=== PATIENT | female | born 1990 | race African-American/Black ===

== ENCOUNTER 2017-05-22 13:05 | Emergency (ER) | payer OTHER, MEDICAID ==
[~2017-05-22] VITALS: Ht 154.9 cm; Wt 72.5 kg
[~2017-05-22 13:05] MED LIST: BIRTH CONTROL PO
[2017-05-22] MEDS ORDERED: IBUPROFEN 800 MG TABLET PO ONE (14:45)
[2017-05-22 16:50] VITALS: BP 136/72
== END 2017-05-22 16:54 | disposition home or self-care (01) ==
LOC: EMS 13:06
DX: S93.401A Sprain of unspecified ligament of right ankle, initial encounter (principal); W10.8XXA Fall (on) (from) other stairs and steps, initial encounter; Y93.89 Activity, other specified; Y92.811 Bus as the place of occurrence of the external cause; Y99.8 Other external cause status
CPT/HCPCS: 99284

== ENCOUNTER 2017-10-09 09:14 | Emergency (ER) | payer OTHER, MEDICAID ==
[~2017-10-09] VITALS: Ht 154.9 cm; Wt 77.3 kg
[2017-10-09] MEDS ORDERED: SODIUM CHLORIDE 0.9% 1,000 ML IV ONE (10:15)
[2017-10-09 11:24] LABS: BASOPHILS % (AUTO) 0.2 % (0.0-2.0); HEMATOCRIT 37.1 % (36-46); HEMOGLOBIN 12.7 g/dL (12.0-16.0); LYMPHOCYTES # (AUTO) 2.5 K/uL (1.0-4.8); LYMPHOCYTES % (AUTO) 25.9 % (22.0-44.0); MEAN CORPUSCULAR HEMOGLOBIN 29.7 pg (26.0-34.0); MEAN CORPUSCULAR HGB CONC 34.3 G/dL (31.0-37.0); MEAN CORPUSCULAR VOLUME 87 fL (80-100); MONOCYTES # (AUTO) 0.8 K/uL (0.1-1.0); MONOCYTES % (AUTO) 8.5 % (2.0-9.0); NEUTROPHILS # (AUTO) 6.2 K/uL (1.8-7.7); NEUTROPHILS % (AUTO) 63.4 % (40.0-70.0); PLATELET COUNT (AUTO) 196 K/uL (150-450); RED BLOOD CELL COUNT(AUTO) 4.28 MIL/uL (4.00-5.20); RED CELL DISTRIBUTION WIDTH 13.4 % (11.5-14.5); WHITE BLOOD COUNT (AUTO) 9.8 K/uL (4.5-11.0)
[2017-10-09 11:31] LABS: ANION GAP 8 mmol/L (8-16); CALCIUM, TOTAL 8.5 mg/dL (8.8-10.5); CARBON DIOXIDE 28 mmol/L (22-29); CHLORIDE 102 mmol/L (98-107); CREATININE 0.59 mg/dL (0.60-1.30); GLOMERULAR FILTR. RATE CALC > 60 mL/min (>60); POTASSIUM 3.7 mmol/L (3.5-5.1); SODIUM SERUM 138 mmol/L (136-145); UREA NITROGEN, BLOOD 17 mg/dL (7-18)
[2017-10-09 11:37] LABS: ALANINE AMINOTRANSFERASE 24 U/L (12-78); ALBUMIN 3.8 g/dL (3.4-5.0); ASPARTATE AMINOTRANSFERASE 11 U/L (15-37); BILIRUBIN,TOTAL 0.8 mg/dL (0.1-1.0)
[2017-10-09 12:28] LABS: GLUCOSE, URINE (UA) NEGATIVE (NEGATIVE); KETONES,URINE 15 mg/dL (NEGATIVE); LEUKOCYTE ESTERASE ,URINE NEGATIVE (NEGATIVE); OCCULT BLOOD,URINE NEGATIVE (NEGATIVE); PH,URINE 5.5 (5.0-8.0); PROTEIN,URINE NEGATIVE (NEGATIVE)
[2017-10-09 12:42] LABS: ADD UA MICROSCOPIC NO; APPEARANCE,URINE HAZY (CLEAR)
[2017-10-09 13:40] VITALS: BP 133/90
== END 2017-10-09 13:44 | disposition home or self-care (01) ==
LOC: EMS 09:18
DX: R19.7 Diarrhea, unspecified (principal); R11.0 Nausea
CPT/HCPCS: 36415; 80053; 81003; 84703; 85025; 99284; J7030

== ENCOUNTER 2018-03-11 08:46 | Emergency (ER) | payer OTHER, MEDICAID ==
[~2018-03-11] VITALS: Ht 154.9 cm; Wt 86.4 kg
[2018-03-11 10:09] LABS: APPEARANCE,URINE TURBID (CLEAR); BILIRUBIN,URINE NEGATIVE (NEGATIVE); GLUCOSE, URINE (UA) NEGATIVE (NEGATIVE); KETONES,URINE NEGATIVE (NEGATIVE); LEUKOCYTE ESTERASE ,URINE SMALL (NEGATIVE); NITRATE,URINE NEGATIVE (NEGATIVE); OCCULT BLOOD,URINE LARGE (NEGATIVE); PROTEIN,URINE SEE CONFIRM (NEGATIVE)
[2018-03-11 10:53] LABS: SULFOSALICYLIC ACID,URINE 4+ (Negative)
[2018-03-11 10:54] LABS: RBC,URINE >100 /HPF (0-2)
[2018-03-11 10:55] LABS: BACTERIA,URINE Many /HPF (None Seen)
[2018-03-11 10:56] LABS: SQUAMOUS EPITHELIAL CELL,UR Moderate /LPF (None Seen)
[2018-03-11 11:23] VITALS: BP 140/83
== END 2018-03-11 11:28 | disposition home or self-care (01) ==
LOC: EMS 08:46
DX: N39.0 Urinary tract infection, site not specified (principal)
CPT/HCPCS: 87086; 99284

== ENCOUNTER 2018-06-10 12:40 | Emergency (ER) | payer OTHER, MEDICAID ==
[~2018-06-10] VITALS: Ht 152.4 cm; Wt 95.9 kg
[2018-06-10 13:59] LABS: BASOPHILS % (AUTO) 1.2 % (0.0-2.0); EOSINOPHILS % (AUTO) 2.1 % (1.0-6.0); HEMATOCRIT 36.1 % (36-46); HEMOGLOBIN 12.3 g/dL (12.0-16.0); LYMPHOCYTES # (AUTO) 2.6 K/uL (1.0-4.8); LYMPHOCYTES % (AUTO) 26.5 % (22.0-44.0); MEAN CORPUSCULAR HEMOGLOBIN 29.3 pg (26.0-34.0); MEAN CORPUSCULAR HGB CONC 33.9 G/dL (31.0-37.0); MEAN CORPUSCULAR VOLUME 87 fL (80-100); MONOCYTES # (AUTO) 0.8 K/uL (0.1-1.0); NEUTROPHILS # (AUTO) 6.1 K/uL (1.8-7.7); NEUTROPHILS % (AUTO) 62.2 % (40.0-70.0); PLATELET COUNT (AUTO) 197 K/uL (150-450); RED BLOOD CELL COUNT(AUTO) 4.18 MIL/uL (4.00-5.20); RED CELL DISTRIBUTION WIDTH 13.4 % (11.5-14.5)
[2018-06-10 14:03] LABS: ANION GAP 7 mmol/L (8-16); CALCIUM, TOTAL 7.9 mg/dL (8.8-10.5); CARBON DIOXIDE 26 mmol/L (22-29); CHLORIDE 102 mmol/L (98-107); GLOMERULAR FILTR. RATE CALC > 60 mL/min (>60); GLUCOSE,RANDOM 99 mg/dL (70-110); POTASSIUM 3.8 mmol/L (3.5-5.1); SODIUM SERUM 135 mmol/L (136-145); UREA NITROGEN, BLOOD 19 mg/dL (7-18)
[2018-06-10 14:09] LABS: ALANINE AMINOTRANSFERASE 27 U/L (12-78); ALBUMIN 3.5 g/dL (3.4-5.0); ALKALINE PHOSPHATASE 62 U/L (46-116); ASPARTATE AMINOTRANSFERASE 17 U/L (15-37); BILIRUBIN,TOTAL 0.2 mg/dL (0.1-1.0)
[2018-06-10 14:34] VITALS: BP 125/72
== END 2018-06-10 15:34 | disposition home or self-care (01) ==
LOC: EMS 12:43
DX: R09.1 Pleurisy (principal); R07.89 Other chest pain
CPT/HCPCS: 93005; 99285

== ENCOUNTER 2018-11-16 16:46 | Emergency (ER) | payer OTHER, MEDICAID ==
[~2018-11-16] VITALS: Ht 154.9 cm; Wt 90.9 kg
[2018-11-16] MEDS ORDERED: KETOROLAC TROMETHAMINE 30 MG/ML VIAL IM ONE (19:45)
[2018-11-16] MEDS ORDERED: DEXAMETHASONE SOD PHOS 4 MG/ML 5 ML VIAL IM ONE (19:45)
[2018-11-16 20:42] VITALS: BP 132/84
== END 2018-11-16 21:12 | disposition home or self-care (01) ==
LOC: EMS 16:47
DX: J02.0 Streptococcal pharyngitis (principal)
CPT/HCPCS: 87430; 96372; 99283; J1100; J1885

== ENCOUNTER 2019-06-03 14:23 | Emergency (ER) | payer MEDICARE, MEDICAID ==
[~2019-06-03] VITALS: Ht 154.9 cm; Wt 88.2 kg
[2019-06-03 14:44] VITALS: BP 128/74
== END 2019-06-03 15:48 | disposition home or self-care (01) ==
LOC: EMS 14:25
DX: K64.4 Residual hemorrhoidal skin tags (principal)

== ENCOUNTER 2019-06-09 15:13 | Emergency (ER) | payer MEDICARE, MEDICAID ==
[~2019-06-09] VITALS: Ht 154.9 cm; Wt 88.2 kg
[2019-06-09] MEDS ORDERED: IBUPROFEN 600 MG TABLET PO ONE (17:45)
[2019-06-09 17:53] LABS: BASOPHILS % (AUTO) 0.4 % (0.0-2.0); EOSINOPHILS % (AUTO) 1.5 % (1.0-6.0); HEMATOCRIT 38.8 % (36-46); HEMOGLOBIN 12.5 g/dL (12.0-16.0); LYMPHOCYTES # (AUTO) 2.4 K/uL (1.0-4.8); LYMPHOCYTES % (AUTO) 19.6 % (22.0-44.0); MEAN CORPUSCULAR HEMOGLOBIN 28.4 pg (26.0-34.0); MEAN CORPUSCULAR HGB CONC 32.1 G/dL (31.0-37.0); MEAN CORPUSCULAR VOLUME 89 fL (80-100); MONOCYTES # (AUTO) 0.9 K/uL (0.1-1.0); MONOCYTES % (AUTO) 7.6 % (2.0-9.0); NEUTROPHILS # (AUTO) 8.8 K/uL (1.8-7.7); NEUTROPHILS % (AUTO) 70.9 % (40.0-70.0); PLATELET COUNT (AUTO) 186 K/uL (150-450); RED BLOOD CELL COUNT(AUTO) 4.38 MIL/uL (4.00-5.20); RED CELL DISTRIBUTION WIDTH 13.4 % (11.5-14.5)
[2019-06-09 18:04] LABS: ANION GAP 10 mmol/L (8-16); CALCIUM, TOTAL 8.9 mg/dL (8.8-10.5); CARBON DIOXIDE 26 mmol/L (22-29); CHLORIDE 101 mmol/L (98-107); CREATININE 0.63 mg/dL (0.60-1.30); GLOMERULAR FILTR. RATE CALC > 60 mL/min (>60); GLUCOSE,RANDOM 79 mg/dL (70-110); POTASSIUM 3.8 mmol/L (3.5-5.1); SODIUM SERUM 137 mmol/L (136-145); UREA NITROGEN, BLOOD 15 mg/dL (7-18)
[2019-06-09 18:12] LABS: APPEARANCE,URINE TURBID (CLEAR); BILIRUBIN,URINE NEGATIVE (NEGATIVE); GLUCOSE, URINE (UA) NEGATIVE (NEGATIVE); KETONES,URINE 40 mg/dL (NEGATIVE); LEUKOCYTE ESTERASE ,URINE NEGATIVE (NEGATIVE); NITRATE,URINE NEGATIVE (NEGATIVE); OCCULT BLOOD,URINE NEGATIVE (NEGATIVE); PH,URINE 5.5 (5.0-8.0); PROTEIN,URINE TRACE (NEGATIVE); UROBILINOGEN,URINE 0.2 mg/dL (<=1.0)
[2019-06-09 18:17] LABS: ALANINE AMINOTRANSFERASE 29 U/L (12-78); ALBUMIN 3.4 g/dL (3.4-5.0); ALKALINE PHOSPHATASE 55 U/L (46-116); ASPARTATE AMINOTRANSFERASE 12 U/L (15-37); BILIRUBIN,TOTAL 0.5 mg/dL (0.1-1.0); HCG,QUANTITATIVE < 1 mIU/mL (0-6); LIPASE 88 U/L (73-393); TOTAL PROTEIN, SERUM 7.1 g/dL (6.4-8.2)
[2019-06-09 18:46] VITALS: BP 111/73
== END 2019-06-09 18:53 | disposition home or self-care (01) ==
LOC: EMS 15:14
DX: R10.32 Left lower quadrant pain (principal)

== ENCOUNTER 2019-11-01 10:28 | Emergency (ER) | payer MEDICARE, MEDICAID ==
[~2019-11-01] VITALS: Ht 157.5 cm; Wt 77.3 kg
[2019-11-01 11:31] LABS: BASOPHILS % (AUTO) 1.1 % (0.0-2.0); EOSINOPHILS % (AUTO) 2.9 % (1.0-6.0); HEMATOCRIT 39.5 % (36-46); LYMPHOCYTES # (AUTO) 2.3 K/uL (1.0-4.8); MEAN CORPUSCULAR HEMOGLOBIN 28.7 pg (26.0-34.0); MEAN CORPUSCULAR HGB CONC 32.8 G/dL (31.0-37.0); MEAN CORPUSCULAR VOLUME 87 fL (80-100); MONOCYTES # (AUTO) 0.5 K/uL (0.1-1.0); MONOCYTES % (AUTO) 6.9 % (2.0-9.0); NEUTROPHILS # (AUTO) 3.9 K/uL (1.8-7.7); NEUTROPHILS % (AUTO) 56.1 % (40.0-70.0); PLATELET COUNT (AUTO) 226 K/uL (150-450); RED BLOOD CELL COUNT(AUTO) 4.52 MIL/uL (4.00-5.20); RED CELL DISTRIBUTION WIDTH 13.5 % (11.5-14.5)
[2019-11-01 11:34] LABS: APPEARANCE,URINE HAZY (CLEAR); BILIRUBIN,URINE NEGATIVE (NEGATIVE); GLUCOSE, URINE (UA) NEGATIVE (NEGATIVE); KETONES,URINE 15 mg/dL (NEGATIVE); LEUKOCYTE ESTERASE ,URINE NEGATIVE (NEGATIVE); NITRATE,URINE NEGATIVE (NEGATIVE); OCCULT BLOOD,URINE NEGATIVE (NEGATIVE); PROTEIN,URINE NEGATIVE (NEGATIVE); UROBILINOGEN,URINE 0.2 mg/dL (<=1.0)
[2019-11-01 11:58] LABS: ANION GAP 5 mmol/L (8-16); CALCIUM, TOTAL 8.5 mg/dL (8.8-10.5); CARBON DIOXIDE 29 mmol/L (22-29); CHLORIDE 101 mmol/L (98-107); CREATININE 0.72 mg/dL (0.60-1.30); GLOMERULAR FILTR. RATE CALC > 60 mL/min (>60); GLUCOSE,RANDOM 82 mg/dL (70-110); SODIUM SERUM 135 mmol/L (136-145); UREA NITROGEN, BLOOD 13 mg/dL (7-18)
[2019-11-01 12:04] LABS: ALANINE AMINOTRANSFERASE 25 U/L (12-78); ALBUMIN 3.9 g/dL (3.4-5.0); ALKALINE PHOSPHATASE 54 U/L (46-116); ASPARTATE AMINOTRANSFERASE 12 U/L (15-37); BILIRUBIN,TOTAL 0.5 mg/dL (0.1-1.0); HCG,QUANTITATIVE < 1 mIU/mL (0-6); LIPASE 55 U/L (73-393); TOTAL PROTEIN, SERUM 7.5 g/dL (6.4-8.2)
[2019-11-01] MEDS: ACETAMINOPHEN 325 MG TABLET PO ONE ×2 (12:09→12:17)
[2019-11-01 15:05] VITALS: BP 122/74
== END 2019-11-01 15:05 | disposition home or self-care (01) ==
LOC: EMS 10:30
DX: R10.2 Pelvic and perineal pain (principal)
CPT/HCPCS: 76856

== ENCOUNTER 2020-10-22 10:02 | Emergency (ER) | payer MEDICARE, MEDICAID ==
[~2020-10-22] VITALS: Ht 154.9 cm; Wt 90.0 kg
[2020-10-22 11:40] VITALS: BP 108/79
== END 2020-10-22 11:56 | disposition home or self-care (01) ==
LOC: EMS 10:07
DX: H00.021 Hordeolum internum right upper eyelid (principal)
CPT/HCPCS: 99283; Z7502

== ENCOUNTER 2021-01-08 06:08 | Emergency (ER) | payer MEDICARE, MEDICAID ==
[~2021-01-08] VITALS: Ht 162.6 cm; Wt 93.2 kg
[2021-01-08 06:59] LABS: BILIRUBIN,URINE NEGATIVE (NEGATIVE); GLUCOSE, URINE (UA) 100 mg/dL (NEGATIVE); KETONES,URINE NEGATIVE (NEGATIVE); LEUKOCYTE ESTERASE ,URINE NEGATIVE (NEGATIVE); NITRATE,URINE NEGATIVE (NEGATIVE); OCCULT BLOOD,URINE NEGATIVE (NEGATIVE); PROTEIN,URINE NEGATIVE (NEGATIVE); UROBILINOGEN,URINE 0.2 mg/dL (<=1.0)
[2021-01-08 07:50] LABS: APPEARANCE,URINE HAZY (CLEAR)
[2021-01-08 07:51] LABS: BACTERIA,URINE None Seen /HPF (None Seen); RBC,URINE None Seen /HPF (0-2); SQUAMOUS EPITHELIAL CELL,UR Many /LPF (None Seen); WBC,URINE None Seen /HPF (0-5)
[2021-01-08 07:52] LABS: BASOPHILS % (AUTO) 0.4 % (0.0-2.0); EOSINOPHILS % (AUTO) 2.2 % (1.0-6.0); HEMATOCRIT 35.8 % (36-46); HEMOGLOBIN 11.8 g/dL (12.0-16.0); LYMPHOCYTES # (AUTO) 1.4 K/uL (1.0-4.8); LYMPHOCYTES % (AUTO) 13.4 % (22.0-44.0); MEAN CORPUSCULAR HEMOGLOBIN 28.7 pg (26.0-34.0); MEAN CORPUSCULAR VOLUME 87 fL (80-100); MONOCYTES # (AUTO) 0.8 K/uL (0.1-1.0); MONOCYTES % (AUTO) 7.4 % (2.0-9.0); NEUTROPHILS # (AUTO) 8.2 K/uL (1.8-7.7); NEUTROPHILS % (AUTO) 76.6 % (40.0-70.0); PLATELET COUNT (AUTO) 185 K/uL (150-450); RED BLOOD CELL COUNT(AUTO) 4.11 MIL/uL (4.00-5.20); RED CELL DISTRIBUTION WIDTH 13.4 % (11.5-14.5)
[2021-01-08 08:03] LABS: ANION GAP 10 mmol/L (8-16); CARBON DIOXIDE 26 mmol/L (22-29); CHLORIDE 101 mmol/L (98-107); CREATININE 0.48 mg/dL (0.60-1.30); GLOMERULAR FILTR. RATE CALC > 60 mL/min (>60); GLUCOSE,RANDOM 74 mg/dL (70-110); SODIUM SERUM 137 mmol/L (136-145); UREA NITROGEN, BLOOD 15 mg/dL (7-18)
[2021-01-08 08:25] LABS: ALANINE AMINOTRANSFERASE 26 U/L (12-78); ALKALINE PHOSPHATASE 46 U/L (46-116); ASPARTATE AMINOTRANSFERASE 15 U/L (15-37); BILIRUBIN,TOTAL 0.3 mg/dL (0.1-1.0); HCG,QUANTITATIVE 12658 mIU/mL (0-6); LIPASE 72 U/L (73-393); TOTAL PROTEIN, SERUM 6.7 g/dL (6.4-8.2)
[2021-01-08 11:00] VITALS: BP 126/60
== END 2021-01-08 11:15 | disposition home or self-care (01) ==
LOC: EMS 06:11
DX: O26.892 Other specified pregnancy related conditions, second trimester (principal); F43.9 Reaction to severe stress, unspecified; R10.30 Lower abdominal pain, unspecified; Z3A.17 17 weeks gestation of pregnancy
CPT/HCPCS: 76801; 99284

== ENCOUNTER 2021-05-13 17:10 | Observation (INO) | payer MEDICARE, MEDICAID ==
[~2021-05-13] VITALS: Ht 154.9 cm; Wt 96.6 kg
[2021-05-13] MEDS ORDERED: PREN-217 PO (18:22)
[2021-05-13 18:30] VITALS: BP 99/52
[2021-05-13 18:49] LABS: APPEARANCE,URINE CLEAR (CLEAR); BILIRUBIN,URINE NEGATIVE (NEGATIVE); GLUCOSE, URINE (UA) NEGATIVE (NEGATIVE); KETONES,URINE 15 mg/dL (NEGATIVE); LEUKOCYTE ESTERASE ,URINE NEGATIVE (NEGATIVE); NITRATE,URINE NEGATIVE (NEGATIVE); OCCULT BLOOD,URINE NEGATIVE (NEGATIVE); PROTEIN,URINE NEGATIVE (NEGATIVE)
== END 2021-05-13 18:24 | disposition home or self-care (01) ==
LOC: 4S 17:10
PROVIDERS: ADMIT Obstetrics & Gynecology Obstetrics; ATTEND Obstetrics & Gynecology Obstetrics
DX: Z04.3 Encounter for examination and observation following other accident (principal); O24.419 Gestational diabetes mellitus in pregnancy, unspecified control; O99.213 Obesity complicating pregnancy, third trimester; Z79.899 Other long term (current) drug therapy; Z3A.38 38 weeks gestation of pregnancy; W18.39XA Other fall on same level, initial encounter; Y93.89 Activity, other specified; Y92.89 Other specified places as the place of occurrence of the external cause; Y99.8 Other external cause status
CPT/HCPCS: 59025; 80307; 81003; 99219

== ENCOUNTER 2021-12-06 16:27 | Emergency (ER) | payer MEDICARE, MEDICAID ==
[~2021-12-06] VITALS: Ht 154.9 cm; Wt 81.8 kg
[~2021-12-06 16:27] MED LIST changes: -BIRTH CONTROL PO; +PREN-217 PO
[2021-12-06 17:13] LABS: COVID AG,FIA SOURCE NASOPHARYNGEAL
[2021-12-06 17:45] LABS: BASOPHILS % (AUTO) 0.3 % (0.0-2.0); EOSINOPHILS % (AUTO) 1.8 % (1.0-6.0); HEMATOCRIT 42.9 % (36-46); HEMOGLOBIN 14.5 g/dL (12.0-16.0); LYMPHOCYTES # (AUTO) 0.7 K/uL (1.0-4.8); LYMPHOCYTES % (AUTO) 9.1 % (22.0-44.0); MEAN CORPUSCULAR HEMOGLOBIN 28.8 pg (26.0-34.0); MEAN CORPUSCULAR HGB CONC 33.7 G/dL (31.0-37.0); MEAN CORPUSCULAR VOLUME 86 fL (80-100); MONOCYTES # (AUTO) 0.7 K/uL (0.1-1.0); MONOCYTES % (AUTO) 9.3 % (2.0-9.0); NEUTROPHILS # (AUTO) 5.8 K/uL (1.8-7.7); NEUTROPHILS % (AUTO) 79.5 % (40.0-70.0); PLATELET COUNT (AUTO) 166 K/uL (150-450); RED BLOOD CELL COUNT(AUTO) 5.02 MIL/uL (4.00-5.20); RED CELL DISTRIBUTION WIDTH 13.8 % (11.5-14.5)
[2021-12-06 18:09] LABS: ANION GAP 8 mmol/L (8-16); CARBON DIOXIDE 26 mmol/L (22-29); CHLORIDE 100 mmol/L (98-107); CREATININE 0.67 mg/dL (0.60-1.30); GLOMERULAR FILTR. RATE CALC > 60 mL/min (>60); GLUCOSE,RANDOM 104 mg/dL (70-110); POTASSIUM 3.9 mmol/L (3.5-5.1); SODIUM SERUM 134 mmol/L (136-145); UREA NITROGEN, BLOOD 9 mg/dL (7-18)
[2021-12-06 18:22] LABS: HCG,QUANTITATIVE < 1 mIU/mL (0-6)
[2021-12-06] MEDS ORDERED: ACETAMINOPHEN 500 MG TABLET PO ONE (18:45)
[2021-12-06 18:59] VITALS: BP 113/84
== END 2021-12-06 18:59 | disposition home or self-care (01) ==
LOC: EMS 16:37
DX: U07.1 COVID-19 (principal); Z79.899 Other long term (current) drug therapy
CPT/HCPCS: 36415; 80048; 84702; 85025; 85379; 87426; 99283; U0003

== ENCOUNTER 2022-01-09 12:06 | Emergency (ER) | payer MEDICAID, MEDICARE ==
[~2022-01-09] VITALS: Ht 154.9 cm; Wt 83.6 kg
[2022-01-09 15:44] LABS: BASOPHILS % (AUTO) 0.8 % (0.0-2.0); EOSINOPHILS % (AUTO) 3.2 % (1.0-6.0); HEMATOCRIT 35.5 % (36-46); HEMOGLOBIN 11.8 g/dL (12.0-16.0); LYMPHOCYTES # (AUTO) 2.4 K/uL (1.0-4.8); LYMPHOCYTES % (AUTO) 24.7 % (22.0-44.0); MEAN CORPUSCULAR HEMOGLOBIN 28.4 pg (26.0-34.0); MEAN CORPUSCULAR HGB CONC 33.3 G/dL (31.0-37.0); MEAN CORPUSCULAR VOLUME 85 fL (80-100); MONOCYTES # (AUTO) 0.9 K/uL (0.1-1.0); MONOCYTES % (AUTO) 8.8 % (2.0-9.0); NEUTROPHILS # (AUTO) 6.1 K/uL (1.8-7.7); NEUTROPHILS % (AUTO) 62.5 % (40.0-70.0); PLATELET COUNT (AUTO) 245 K/uL (150-450); RED BLOOD CELL COUNT(AUTO) 4.16 MIL/uL (4.00-5.20); RED CELL DISTRIBUTION WIDTH 13.8 % (11.5-14.5)
[2022-01-09 15:59] LABS: ANION GAP 6 mmol/L (8-16); CALCIUM, TOTAL 8.9 mg/dL (8.8-10.5); CARBON DIOXIDE 28 mmol/L (22-29); CHLORIDE 103 mmol/L (98-107); CREATININE 0.55 mg/dL (0.60-1.30); GLUCOSE,RANDOM 79 mg/dL (70-110); POTASSIUM 3.7 mmol/L (3.5-5.1); SODIUM SERUM 137 mmol/L (136-145); UREA NITROGEN, BLOOD 17 mg/dL (7-18)
[2022-01-09 16:00] LABS: GLOMERULAR FILTR. RATE CALC > 60 mL/min (>60)
[2022-01-09 16:13] LABS: ALANINE AMINOTRANSFERASE 19 U/L (12-78); ALBUMIN 3.3 g/dL (3.4-5.0); ALKALINE PHOSPHATASE 75 U/L (46-116); ASPARTATE AMINOTRANSFERASE 10 U/L (15-37); BILIRUBIN,TOTAL 0.2 mg/dL (0.1-1.0); HCG,QUANTITATIVE < 1 mIU/mL (0-6); LIPASE 59 U/L (73-393); TOTAL PROTEIN, SERUM 7.5 g/dL (6.4-8.2)
[2022-01-09] MEDS ORDERED: SODIUM CHLORIDE 0.9% 100 ML ONE (16:45)
[2022-01-09] MEDS ORDERED: IOHEXOL 350 MG/ML 100 ML VIAL ONE (16:45)
[2022-01-09 19:39] VITALS: BP 126/75
== END 2022-01-09 19:41 | disposition home or self-care (01) ==
LOC: EMS 12:15
DX: R10.9 Unspecified abdominal pain (principal); Z79.899 Other long term (current) drug therapy
CPT/HCPCS: 74177; 80053; 83690; 84702; 85025; 99285; J7050; Q9967

== ENCOUNTER 2022-01-10 09:08 | Inpatient (IN) | payer MEDICAID ==
[~2022-01-10] VITALS: Ht 160 cm; Wt 80.1 kg
[2022-01-10] MEDS ORDERED: SODIUM CHLORIDE 0.9% 1,000 ML IV ONE ×2 (10:00→16:15)
[2022-01-10] MEDS ORDERED: ONDANSETRON HCL 4 MG/2 ML VIAL IVP ONE ×2 (10:00→12:00)
[2022-01-10] MEDS ORDERED: BARIUM SULFATE 0.1% SUSPENSION 450 ML BOTTLE PO ONE (10:00)
[2022-01-10 10:05] LABS: BASOPHILS % (AUTO) 0.6 % (0.0-2.0); EOSINOPHILS % (AUTO) 1.8 % (1.0-6.0); HEMATOCRIT 35.1 % (36-46); HEMOGLOBIN 11.7 g/dL (12.0-16.0); LYMPHOCYTES # (AUTO) 2.2 K/uL (1.0-4.8); LYMPHOCYTES % (AUTO) 23.3 % (22.0-44.0); MEAN CORPUSCULAR HEMOGLOBIN 28.3 pg (26.0-34.0); MEAN CORPUSCULAR HGB CONC 33.4 G/dL (31.0-37.0); MEAN CORPUSCULAR VOLUME 85 fL (80-100); MONOCYTES # (AUTO) 0.6 K/uL (0.1-1.0); NEUTROPHILS # (AUTO) 6.2 K/uL (1.8-7.7); NEUTROPHILS % (AUTO) 67.3 % (40.0-70.0); PLATELET COUNT (AUTO) 257 K/uL (150-450); RED BLOOD CELL COUNT(AUTO) 4.15 MIL/uL (4.00-5.20); RED CELL DISTRIBUTION WIDTH 13.8 % (11.5-14.5)
[2022-01-10] MEDS ORDERED: SODIUM CHLORIDE 0.9% 100 ML ONE (10:09)
[2022-01-10] MEDS ORDERED: IOHEXOL 350 MG/ML 100 ML VIAL ONE (10:09)
[2022-01-10 10:24] LABS: ANION GAP 9 mmol/L (8-16); CALCIUM, TOTAL 8.7 mg/dL (8.8-10.5); CARBON DIOXIDE 27 mmol/L (22-29); CHLORIDE 101 mmol/L (98-107); CREATININE 0.49 mg/dL (0.60-1.30); GLUCOSE,RANDOM 85 mg/dL (70-110); POTASSIUM 3.8 mmol/L (3.5-5.1); SODIUM SERUM 137 mmol/L (136-145); UREA NITROGEN, BLOOD 16 mg/dL (7-18)
[2022-01-10 10:26] LABS: GLOMERULAR FILTR. RATE CALC > 60 mL/min (>60)
[2022-01-10 10:30] LABS: ALANINE AMINOTRANSFERASE 20 U/L (12-78); ALBUMIN 3.3 g/dL (3.4-5.0); ALKALINE PHOSPHATASE 69 U/L (46-116); ASPARTATE AMINOTRANSFERASE 10 U/L (15-37); BILIRUBIN,TOTAL 0.2 mg/dL (0.1-1.0); LIPASE 37 U/L (73-393); TOTAL PROTEIN, SERUM 7.7 g/dL (6.4-8.2)
[2022-01-10] MEDS ORDERED: FentaNYL CITRATE PF 100 MCG/2 ML VIAL IVP ONE (12:00)
[2022-01-10] MEDS ORDERED: LIDOCAINE/PF 2% 5 ML VIAL IM ONE (12:00)
[2022-01-10] MEDS ORDERED: MIDAZOLAM HCL 2 MG/2 ML VIAL IVP ONE (12:00)
[2022-01-10] MEDS ORDERED: SUCCINYLCHOLINE CHLORIDE 20 MG/ML 10 ML VIAL IVP ONE (12:00)
[2022-01-10] MEDS ORDERED: DEXAMETHASONE SOD PHOS 4 MG/ML VIAL IVP ONE (12:00)
[2022-01-10] MEDS ORDERED: PROPOFOL 1% 20 ML VIAL IVP ONE (12:00)
[2022-01-10] MEDS ORDERED: HYDROmorphone 2 MG/ML VIAL IVP ONE (12:00)
[2022-01-10] MEDS ORDERED: KETOROLAC TROMETHAMINE 60 MG/2 ML VIAL IM ONE (12:00)
[2022-01-10 15:02] LABS: COVID AG,FIA SOURCE NASAL SWAB
[2022-01-10] MEDS ORDERED: SODIUM CHLORIDE 0.9% 1,000 ML ONE ×2 (15:06→15:42)
[2022-01-10] MEDS ORDERED: BUPIVACAINE 0.25%/EPI 1:200,000/PF 10 ML VIAL ONE (15:06)
[2022-01-10] MEDS ORDERED: FentaNYL CITRATE PF 100 MCG/2 ML VIAL IVP PRN (15:45)
[2022-01-10] MEDS ORDERED: MEPERIDINE-PF 25 MG/ML VIAL IVP PRN (15:45)
[2022-01-10] MEDS ORDERED: HYDROmorphone 2 MG/ML VIAL IVP PRN (15:45)
[2022-01-10] MEDS ORDERED: MORPHINE SULFATE 2 MG/ML SYRINGE IVP PRN (16:15)
[2022-01-10] MEDS ORDERED: BISACODYL 10 MG RECTAL RECTAL SUPPOSITORY PR PRN (16:15)
[2022-01-10 18:23] VITALS: BP 113/67
[2022-01-10 19:30] VITALS: BP 107/83
[2022-01-10] MEDS ORDERED: NALOXONE HCL 1 MG/ML SYRINGE ONE (19:59)
[2022-01-10 20:01] LABS: GLUCOMETER DEV NAME(LOC) 6N.2; GLUCOSE,POINT OF CARE 343 MG/DL (70-110)
[2022-01-10 20:19] LABS: ABG BASE EXCESS -7.6 mmol/L (-2.0-3.0); ABG CARBOXYHEMOGLOBIN 0.2 % (0.0-1.5); ABG HCO3 18.2 mmol/L (22.0-26.0); ABG METHEMOGLOBIN 0.3 % (0.0-1.5); ABG OXYGEN CONTENT 16.7 mL/dL (15.0-23.0); ABG OXYGEN SATURATION 97.5 % (95.0-98.0); ABG PCO2 55 mmHg (35-45); ABG PH 7.194 (7.350-7.450); ABG TOTAL HEMOGLOBIN 12.1 G/dL (12.0-18.0); PO2, ARTERIAL BG 110.5 mmHg (92.0-100.0); SOURCE, BLOOD GAS ARTERIAL; TEMPERATURE, FAHRENHEIT, BG 98.6 FAHREN (96.0-98.6)
[2022-01-10 20:20] LABS: O2 DEVICE,BLOOD GAS NON REBREATHER (ROOM AIR); SITE, BLOOD GAS RT RADIAL
[2022-01-10 20:33] LABS: ANION GAP 10 mmol/L (8-16); CALCIUM, TOTAL 7.9 mg/dL (8.8-10.5); CARBON DIOXIDE 25 mmol/L (22-29); CHLORIDE 101 mmol/L (98-107); CREATININE 0.78 mg/dL (0.60-1.30); GLOMERULAR FILTR. RATE CALC > 60 mL/min (>60); GLUCOSE,RANDOM 346 mg/dL (70-110); POTASSIUM 3.2 mmol/L (3.5-5.1); SODIUM SERUM 136 mmol/L (136-145); UREA NITROGEN, BLOOD 12 mg/dL (7-18)
[2022-01-10 20:38] LABS: ALANINE AMINOTRANSFERASE 20 U/L (12-78); ALKALINE PHOSPHATASE 70 U/L (46-116); ASPARTATE AMINOTRANSFERASE 13 U/L (15-37); BASOPHILS % (AUTO) 0.3 % (0.0-2.0); BILIRUBIN,TOTAL 0.2 mg/dL (0.1-1.0); EOSINOPHILS % (AUTO) 0.6 % (1.0-6.0); HEMATOCRIT 35.4 % (36-46); HEMOGLOBIN 11.2 g/dL (12.0-16.0); LYMPHOCYTES # (AUTO) 4.9 K/uL (1.0-4.8); LYMPHOCYTES % (AUTO) 22.1 % (22.0-44.0); MEAN CORPUSCULAR HEMOGLOBIN 27.7 pg (26.0-34.0); MEAN CORPUSCULAR HGB CONC 31.6 G/dL (31.0-37.0); MEAN CORPUSCULAR VOLUME 88 fL (80-100); MONOCYTES # (AUTO) 0.3 K/uL (0.1-1.0); MONOCYTES % (AUTO) 1.3 % (2.0-9.0); NEUTROPHILS # (AUTO) 16.8 K/uL (1.8-7.7); NEUTROPHILS % (AUTO) 75.7 % (40.0-70.0); RED BLOOD CELL COUNT(AUTO) 4.04 MIL/uL (4.00-5.20); RED CELL DISTRIBUTION WIDTH 13.8 % (11.5-14.5); TOTAL PROTEIN, SERUM 7.2 g/dL (6.4-8.2)
[2022-01-10 20:39] LABS: PLATELET COUNT (AUTO) 326 K/uL (150-450)
[2022-01-10 20:43] LABS: INR 1.1 (0.9-1.1); PROTHROMBIN TIME 11.3 SEC (9.4-11.6)
[2022-01-10 21:00] LABS: B-TYPE NATRIURETIC PEPTIDE 18 pg/mL (0-100)
[2022-01-10] MEDS ORDERED: RINGERS SOLUTION,LACTATED 1,000 ML IV SCH (21:00)
[2022-01-10] MEDS ORDERED: INSULIN LISPRO 100 UNITS/ML SQ PRN (21:00)
[2022-01-10] MEDS ORDERED: DEXTROSE 50%-WATER 25 GM/50 ML SYRINGE IVP PRN (21:00)
[2022-01-10] MEDS ORDERED: INSULIN GLARGINE,HUM.REC.ANLOG 100 UNITS/ML SQ SCH (21:00)
[2022-01-10] MEDS: DOCUSATE SODIUM 100 MG CAPSULE PO SCH (21:00)
[2022-01-10] MEDS ORDERED: SODIUM CHLORIDE 0.9% 250 ML IV ONE (21:55)
[2022-01-10] MEDS: PIPERACILLIN/TAZO 3.375 GM/D5W 50 ML IV SCH ×2 (21:56→22:15)
[2022-01-10] MEDS: OXYGEN THERAPY IH SCH (21:57)
[2022-01-10] MEDS: ETHYL ALCOHOL 62% ANTISEPTIC NASAL INHALANT 0.6 ML AMPUL NASAL SCH (22:13)
[2022-01-10] MEDS ORDERED: POTASSIUM CHLORIDE 10% 40 MEQ/30 ML LIQUID UDCUP PO ONE (22:45)
[2022-01-11] VITALS (7 sets, daily range): BP systolic 89–128; BP diastolic 59–87
[2022-01-11] MEDS ORDERED: INFLUENZA VIRUS VACCINE QVS 2021-22 (6MO+)/PF 60 MCG/0.5 ML SYRINGE IM. ONE (02:15)
[2022-01-11] MEDS ORDERED: MEPERIDINE-PF 25 MG/ML VIAL IVP PRN (03:30)
[2022-01-11] MEDS ORDERED: FentaNYL CITRATE PF 100 MCG/2 ML VIAL IVP PRN (03:30)
[2022-01-11] MEDS ORDERED: SODIUM CHLORIDE 0.9% 1,000 ML IV ONE (03:30)
[2022-01-11] MEDS ORDERED: MORPHINE SULFATE 2 MG/ML SYRINGE IVP PRN (03:30)
[2022-01-11] MEDS ORDERED: HYDROmorphone 2 MG/ML VIAL IVP PRN (03:30)
[2022-01-11] MEDS: PIPERACILLIN/TAZO 3.375 GM/D5W 50 ML IV SCH ×4 (05:23→22:39)
[2022-01-11 05:42] LABS: GLUCOSE,POINT OF CARE 206 MG/DL (70-110)
[2022-01-11] MEDS: ONDANSETRON HCL 4 MG/2 ML VIAL IVP PRN ×3 (08:54→22:39)
[2022-01-11 08:56] LABS: BASOPHILS % (AUTO) 0.1 % (0.0-2.0); EOSINOPHILS % (AUTO) 0 % (1.0-6.0); HEMOGLOBIN 11.4 g/dL (12.0-16.0); LYMPHOCYTES # (AUTO) 1.1 K/uL (1.0-4.8); LYMPHOCYTES % (AUTO) 5.6 % (22.0-44.0); MEAN CORPUSCULAR HEMOGLOBIN 28.4 pg (26.0-34.0); MEAN CORPUSCULAR HGB CONC 33.5 G/dL (31.0-37.0); MEAN CORPUSCULAR VOLUME 85 fL (80-100); MONOCYTES # (AUTO) 0.8 K/uL (0.1-1.0); NEUTROPHILS # (AUTO) 17.5 K/uL (1.8-7.7); PLATELET COUNT (AUTO) 268 K/uL (150-450); RED BLOOD CELL COUNT(AUTO) 4.02 MIL/uL (4.00-5.20); RED CELL DISTRIBUTION WIDTH 13.5 % (11.5-14.5)
[2022-01-11 09:02] LABS: ANION GAP 9 mmol/L (8-16); CALCIUM, TOTAL 8.4 mg/dL (8.8-10.5); CARBON DIOXIDE 27 mmol/L (22-29); CHLORIDE 102 mmol/L (98-107); CREATININE 0.53 mg/dL (0.60-1.30); GLUCOSE,RANDOM 87 mg/dL (70-110); POTASSIUM 4.2 mmol/L (3.5-5.1); SODIUM SERUM 138 mmol/L (136-145); UREA NITROGEN, BLOOD 9 mg/dL (7-18)
[2022-01-11 09:03] LABS: GLOMERULAR FILTR. RATE CALC > 60 mL/min (>60)
[2022-01-11] MEDS: PANTOPRAZOLE SODIUM 40 MG/VIAL IVP SCH (09:03)
[2022-01-11 09:04] LABS: NEUTROPHILS % (AUTO) 90.3 % (40.0-70.0)
[2022-01-11] MEDS: DOCUSATE SODIUM 100 MG CAPSULE PO SCH ×2 (09:04→20:24)
[2022-01-11] MEDS: OXYGEN THERAPY IH SCH ×2 (09:04→20:00)
[2022-01-11] MEDS: ETHYL ALCOHOL 62% ANTISEPTIC NASAL INHALANT 0.6 ML AMPUL NASAL SCH ×2 (09:04→20:28)
[2022-01-11 10:51] LABS: GLUCOSE,POINT OF CARE 96 MG/DL (70-110)
[2022-01-11 17:36] LABS: GLUCOMETER DEV NAME(LOC) 4E.2; GLUCOSE,POINT OF CARE 84 MG/DL (70-110)
[2022-01-11 17:36] LABS: GLUCOMETER DEV NAME(LOC) 4E.2; GLUCOSE,POINT OF CARE 62 MG/DL (70-110)
[2022-01-11 18:21] LABS: GLUCOSE,POINT OF CARE 67 MG/DL (70-110)
[2022-01-11 18:21] LABS: GLUCOSE,POINT OF CARE 176 MG/DL (70-110)
[2022-01-11 21:31] LABS: GLUCOMETER DEV NAME(LOC) 6N.1; GLUCOSE,POINT OF CARE 119 MG/DL (70-110)
[2022-01-12 04:19] VITALS: BP 110/60
[2022-01-12 06:41] LABS: GLUCOMETER DEV NAME(LOC) 6N.2; GLUCOSE,POINT OF CARE 94 MG/DL (70-110)
[2022-01-12] MEDS: OXYGEN THERAPY IH SCH ×2 (08:00→20:00)
[2022-01-12] MEDS ORDERED: SODIUM CHLORIDE 0.9% 1,000 ML ONE (08:10)
[2022-01-12] MEDS: PANTOPRAZOLE SODIUM 40 MG/VIAL IVP SCH (08:26)
[2022-01-12] MEDS: ACETAMINOPHEN 325 MG TABLET PO PRN ×4 (08:26→08:52)
[2022-01-12] MEDS: PIPERACILLIN/TAZO 3.375 GM/D5W 50 ML IV SCH ×3 (08:27→18:00)
[2022-01-12] MEDS: ETHYL ALCOHOL 62% ANTISEPTIC NASAL INHALANT 0.6 ML AMPUL NASAL SCH ×2 (08:27→21:42)
[2022-01-12] MEDS: DOCUSATE SODIUM 100 MG CAPSULE PO SCH ×2 (08:27→21:42)
[2022-01-12] MEDS: ONDANSETRON HCL 4 MG/2 ML VIAL IVP PRN (08:35)
[2022-01-12 08:55] VITALS: BP 130/87
[2022-01-12 16:17] VITALS: BP 122/73
[2022-01-12 19:26] LABS: GLUCOMETER DEV NAME(LOC) 6N.1; GLUCOSE,POINT OF CARE 95 MG/DL (70-110)
[2022-01-12 19:26] LABS: GLUCOMETER DEV NAME(LOC) 6N.1; GLUCOSE,POINT OF CARE 122 MG/DL (70-110)
[2022-01-12 19:47] VITALS: BP 123/71
[2022-01-13] MEDS: PIPERACILLIN/TAZO 3.375 GM/D5W 50 ML IV SCH ×3 (01:28→12:40)
[2022-01-13 05:05] VITALS: BP 134/91
[2022-01-13 06:46] LABS: GLUCOMETER DEV NAME(LOC) 4E.2; GLUCOSE,POINT OF CARE 81 MG/DL (70-110)
[2022-01-13 06:54] LABS: BASOPHILS % (AUTO) 0.8 % (0.0-2.0); HEMATOCRIT 37.2 % (36-46); HEMOGLOBIN 12.4 g/dL (12.0-16.0); LYMPHOCYTES % (AUTO) 21.4 % (22.0-44.0); MEAN CORPUSCULAR HEMOGLOBIN 28.4 pg (26.0-34.0); MEAN CORPUSCULAR HGB CONC 33.4 G/dL (31.0-37.0); MEAN CORPUSCULAR VOLUME 85 fL (80-100); MONOCYTES # (AUTO) 0.7 K/uL (0.1-1.0); MONOCYTES % (AUTO) 7.8 % (2.0-9.0); NEUTROPHILS # (AUTO) 6.1 K/uL (1.8-7.7); PLATELET COUNT (AUTO) 259 K/uL (150-450); RED BLOOD CELL COUNT(AUTO) 4.38 MIL/uL (4.00-5.20); RED CELL DISTRIBUTION WIDTH 13.7 % (11.5-14.5)
[2022-01-13 07:06] LABS: ANION GAP 5 mmol/L (8-16); CALCIUM, TOTAL 8.2 mg/dL (8.8-10.5); CARBON DIOXIDE 32 mmol/L (22-29); CHLORIDE 100 mmol/L (98-107); CREATININE 0.66 mg/dL (0.60-1.30); GLOMERULAR FILTR. RATE CALC > 60 mL/min (>60); GLUCOSE,RANDOM 90 mg/dL (70-110); POTASSIUM 3.3 mmol/L (3.5-5.1); SODIUM SERUM 137 mmol/L (136-145); UREA NITROGEN, BLOOD 10 mg/dL (7-18)
[2022-01-13 08:15] VITALS: BP 107/75
[2022-01-13] MEDS: ETHYL ALCOHOL 62% ANTISEPTIC NASAL INHALANT 0.6 ML AMPUL NASAL SCH (09:00)
[2022-01-13] MEDS: OXYGEN THERAPY IH SCH (09:04)
[2022-01-13] MEDS: DOCUSATE SODIUM 100 MG CAPSULE PO SCH (09:19)
[2022-01-13] MEDS: PANTOPRAZOLE SODIUM 40 MG/VIAL IVP SCH (09:19)
[2022-01-13] MEDS ORDERED: AMOX1TAB16 PO ×2 (14:00→14:15)
== END 2022-01-13 15:00 | disposition home or self-care (01) | DRG 233 ==
LOC: EMS 09:10 → 6N 16:24 → ICU 20:40 → 6S 01-11 12:15
PROVIDERS: ADMIT Internal Medicine; ATTEND Internal Medicine
PROC: 0WJG4ZZ Inspection of Peritoneal Cavity, Percutaneous Endoscopic Approach (ICD-10-PCS; 2022-01-10)
PROC: 3E0M05Z Introduction of Adhesion Barrier into Peritoneal Cavity, Open Approach (ICD-10-PCS; 2022-01-10)
PROC: 0DTJ0ZZ Resection of Appendix, Open Approach (ICD-10-PCS; principal; 2022-01-10 15:50)
DX: K35.33 Acute appendicitis with perforation, localized peritonitis, and gangrene, with abscess (principal); J96.00 Acute respiratory failure, unspecified whether with hypoxia or hypercapnia; R65.11 Systemic inflammatory response syndrome (SIRS) of non-infectious origin with acute organ dysfunction; K56.7 Ileus, unspecified; R16.0 Hepatomegaly, not elsewhere classified; K66.0 Peritoneal adhesions (postprocedural) (postinfection); Z20.822 Contact with and (suspected) exposure to COVID-19; Z53.31 Laparoscopic surgical procedure converted to open procedure; Z83.3 Family history of diabetes mellitus; Z86.16 Personal history of COVID-19; Z98.891 History of uterine scar from previous surgery
CPT/HCPCS: 36600; 71045; 74177; 80048; 80053; 82805; 82962; 83605; 83690; 83735; 83880; 84100; 84484; 84703; 85025; 85610; 87081; 88304; 94660; 97162; 99285; C9113; G0378; J0330; J0690; J1100; J1170; J1815; J1885; J2250; J2310; J2405; J2543; J2704; J3010; J3490; J7030; J7050; Q9967; 36415-L1; 36415-TC; Z7610

== ENCOUNTER 2023-05-14 11:55 | Emergency (ER) | payer MEDICAID, MEDICARE, OTHER ==
[~2023-05-14] VITALS: Ht 154.9 cm; Wt 96.8 kg
[~2023-05-14 11:55] MED LIST changes: +AMOX1TAB16 PO
[2023-05-14 12:06] VITALS: TEMP 97.9
[2023-05-14] MEDS ORDERED: ERYT3.5O8 OU (12:31)
[2023-05-14 12:34] VITALS: BP 139/73; PULSE 91; RESP 18
== END 2023-05-14 12:42 | disposition home or self-care (01) ==
LOC: EMS 12:00
DX: H10.9 Unspecified conjunctivitis (principal); Z98.890 Other specified postprocedural states
CPT/HCPCS: 99283

== ENCOUNTER 2023-05-17 16:13 | Emergency (ER) | payer OTHER ==
[~2023-05-17] VITALS: Ht 154.9 cm; Wt 97.7 kg
[~2023-05-17 16:13] MED LIST changes: -AMOX1TAB16 PO; +ERYT3.5O8 OU
[2023-05-17 16:23] VITALS: TEMP 98.8
[2023-05-17 16:31] VITALS: BP 116/84; PULSE 82; RESP 16
[2023-05-17] MEDS ORDERED: CIPR2.5D17 OU ×2 (16:35→16:50)
== END 2023-05-17 17:04 | disposition home or self-care (01) ==
LOC: EMS 16:15
DX: H10.9 Unspecified conjunctivitis (principal)
CPT/HCPCS: 99283; Z7502